=== PATIENT | male | born 1970 | race Hispanic/Latino ===

== ENCOUNTER 2019-10-29 20:07 | Inpatient (IN) | payer BC, OTHER ==
[~2019-10-29] VITALS: Ht 175.3 cm; Wt 78.4 kg
[2019-10-29] MEDS ORDERED: SODIUM CHLORIDE 0.9% 1000ML 1,000 ML IV ONE (21:05)
[2019-10-29] MEDS ORDERED: ACETAMINOPHEN EXTRA STRENGTH 500 MG TABLET ONE (21:05)
[2019-10-29] MEDS ORDERED: LEVOFLOXACIN 500 MG/D5W 100 ML 100 ML ONE (21:05)
[2019-10-29 21:23] LABS: BASOPHILS % (AUTO) 0.1 % (0.0-5.0); EOSINOPHILS % (AUTO) 2.1 % (0.0-8.0); HEMATOCRIT 43.8 % (42-54); LYMPHOCYTES % (AUTO) 6.5 % (21.0-51.0); MEAN CORPUSCULAR HEMOGLOBIN 30.9 pg (27.0-33.0); MEAN CORPUSCULAR VOLUME 90.9 fL (79-99); MONOCYTES % (AUTO) 3.4 % (3.0-13.0); NEUTROPHILS % (AUTO) 87.6 % (40.0-77.0); PLATELET COUNT (AUTO) 197 K/uL (130-400); RED BLOOD CELL COUNT(AUTO) 4.82 MIL/uL (4.50-6.20); RED CELL DISTRIBUTION WIDTH 12.3 % (11.0-15.5)
[2019-10-29 21:41] LABS: CREATININE 1.4 mg/dL (0.5-1.5); POTASSIUM 3.4 mmol/L (3.5-5.1)
[2019-10-29 21:46] LABS: ALBUMIN 3.3 g/dL (3.5-5.0); BILIRUBIN,TOTAL 0.5 mg/dL (0.2-1.0); INR 0.96 (0.85-1.15); PARTIAL THROMBOPLASTIN TIME 27.7 SEC (26.3-35.5); PROTHROMBIN TIME 10.4 SEC (9.6-11.6); TOTAL PROTEIN, SERUM 7.5 g/dL (6.0-8.3)
[2019-10-29] MEDS ORDERED: LIDOCAINE HCL-MPF 1% 2ML VIAL IV PRN (22:45)
[2019-10-29] MEDS ORDERED: ONDANSETRON HCL 4 MG/2 ML VIAL IV PRN (22:45)
[2019-10-29] MEDS ORDERED: POTASSIUM CHLORIDE 10MEQ/100ML 100 ML IV PRN (22:45)
[2019-10-29] MEDS ORDERED: POTASSIUM CHLORIDE 20 MEQ ERTAB PO PRN (22:45)
[2019-10-29] MEDS ORDERED: LACTULOSE 20 GM/30 ML UDCUP PO PRN (22:45)
[2019-10-29] MEDS: ALBUTEROL INHALER 90MCG/INH IH SCH (22:45)
[2019-10-29] MEDS ORDERED: ACETAMINOPHEN 325 MG TAB PO PRN ×2 (22:45)
[2019-10-29] MEDS: SODIUM CHLORIDE 0.9% 1000ML 1,000 ML IV SCH (23:15)
[2019-10-29] MEDS ORDERED: AZITHROMYCIN 500MG+NS 250ML 250 ML IV ONE (23:56)
[2019-10-29] MEDS ORDERED: CEFTRIAXONE SODIUM 1 GM ONE (23:57)
[2019-10-30 00:41] LABS: APPEARANCE,URINE Clear (CLEAR); BILIRUBIN,URINE Negative (NEGATIVE); COLOR,URINE Yellow (YELLOW); GLUCOSE, URINE (UA) Negative (NEGATIVE); KETONES,URINE Negative (NEGATIVE); LEUKOCYTE ESTERASE ,URINE Negative (NEGATIVE); NITRATE,URINE Negative (NEGATIVE); OCCULT BLOOD,URINE Negative (NEGATIVE); PROTEIN,URINE POS 1+ mg/dL (NEGATIVE)
[2019-10-30] MEDS ORDERED: GUAIFENESIN-CODEINE 5 ML SYRUP ONE (01:55)
[2019-10-30] MEDS: ALBUTEROL INHALER 90MCG/INH IH SCH ×6 (02:45→22:45)
[2019-10-30 04:49] LABS: BASOPHILS % (AUTO) 0.2 % (0.0-5.0); HEMATOCRIT 41.5 % (42-54); LYMPHOCYTES % (AUTO) 10.4 % (21.0-51.0); MEAN CORPUSCULAR HEMOGLOBIN 30.2 pg (27.0-33.0); MEAN CORPUSCULAR HGB CONC 33.3 g/dL (32.0-36.0); MEAN CORPUSCULAR VOLUME 90.8 fL (79-99); NEUTROPHILS % (AUTO) 86.2 % (40.0-77.0); PLATELET COUNT (AUTO) 179 K/uL (130-400); RED BLOOD CELL COUNT(AUTO) 4.57 MIL/uL (4.50-6.20); RED CELL DISTRIBUTION WIDTH 12.5 % (11.0-15.5); WHITE BLOOD COUNT (AUTO) 9.4 K/uL (4.8-10.8)
[2019-10-30 04:58] LABS: CREATININE 1.3 mg/dL (0.5-1.5); POTASSIUM 3.8 mmol/L (3.5-5.1)
[2019-10-30] MEDS: FAMOTIDINE 20MG TAB 20 MG TAB PO SCH (09:00)
[2019-10-30] MEDS: ENOXAPARIN SODIUM 40 MG/0.4 ML SYRINGE SQ SCH (09:00)
[2019-10-30] MEDS ORDERED: FAMOTIDINE 20MG TAB 20 MG TAB ONE (11:03)
[2019-10-30] MEDS ORDERED: ENOXAPARIN SODIUM 60 MG/0.6 ML SQ ONE (11:03)
[2019-10-30] MEDS: METHYLPREDNISOLONE SOD SUCC 40MG/ML 1ML IVP SCH ×2 (11:15→22:48)
[2019-10-30] MEDS ORDERED: METHYLPREDNISOLONE SOD SUCC 40MG/ML 1ML ONE (11:34)
[2019-10-30 17:41] VITALS: BP 113/64
[2019-10-30] MEDS ORDERED: BENZ200C53 PO (17:54)
[2019-10-30] MEDS ORDERED: LEVA15HF3 IH (17:54)
[2019-10-30] MEDS ORDERED: ALBU2.5V2 IH (17:54)
[2019-10-30] MEDS: SODIUM CHLORIDE 0.9% 1000ML 1,000 ML IV SCH ×2 (18:49→20:48)
[2019-10-30 19:43] VITALS: BP 109/64
[2019-10-30] MEDS ORDERED: GUAIFENESIN 600 MG TABLET.ER PO ONE (20:25)
[2019-10-30] MEDS ORDERED: GUAIFENESIN SUGAR-FREE 100 MG/5 ML UDCUP PO PRN (20:45)
[2019-10-30] MEDS: CEFTRIAXONE SODIUM 1 GM IV SCH (22:48)
[2019-10-30] MEDS: AZITHROMYCIN 500MG+NS 250ML 250 ML IV SCH (22:49)
[2019-10-30 23:50] VITALS: BP 108/57
[2019-10-31] MEDS: ALBUTEROL INHALER 90MCG/INH IH SCH ×6 (02:52→22:08)
[2019-10-31] MEDS: SODIUM CHLORIDE 0.9% 1000ML 1,000 ML IV SCH (03:35)
[2019-10-31 03:47] VITALS: BP 108/65
[2019-10-31 06:14] LABS: BASOPHILS % (AUTO) 0.1 % (0.0-5.0); HEMATOCRIT 42.4 % (42-54); LYMPHOCYTES % (AUTO) 3.7 % (21.0-51.0); MEAN CORPUSCULAR HEMOGLOBIN 29.9 pg (27.0-33.0); MEAN CORPUSCULAR VOLUME 90.6 fL (79-99); MONOCYTES % (AUTO) 2.7 % (3.0-13.0); NEUTROPHILS % (AUTO) 93.2 % (40.0-77.0); PLATELET COUNT (AUTO) 239 K/uL (130-400); RED BLOOD CELL COUNT(AUTO) 4.68 MIL/uL (4.50-6.20); WHITE BLOOD COUNT (AUTO) 12.1 K/uL (4.8-10.8)
[2019-10-31] MEDS: INSULIN HUMULIN R 100 UNIT/ML 3ML SQ SCH ×4 (06:27→21:00)
[2019-10-31 06:34] LABS: CREATININE 1.3 mg/dL (0.5-1.5); POTASSIUM 3.9 mmol/L (3.5-5.1)
[2019-10-31 08:10] VITALS: BP 117/65
[2019-10-31] MEDS: FAMOTIDINE 20MG TAB 20 MG TAB PO SCH (10:13)
[2019-10-31] MEDS: METHYLPREDNISOLONE SOD SUCC 40MG/ML 1ML IVP SCH ×2 (10:13→21:54)
[2019-10-31] MEDS: GUAIFENESIN-DM 200/20 MG 10 ML PO SCH ×3 (10:13→22:08)
[2019-10-31] MEDS: ENOXAPARIN SODIUM 40 MG/0.4 ML SYRINGE SQ SCH (10:14)
[2019-10-31 11:53] VITALS: BP 115/64
[2019-10-31] MEDS ORDERED: ACETAMINOPHEN-CODEINE 300/30MG TAB PO ONE (14:25)
[2019-10-31 16:03] VITALS: BP 109/63
--- NOTE | 2019-10-31 16:15 | NUR ---
cm note pt resides at home alone, independent with adls/ambulation. no dme. no home services. dc plan is home at dc. no dc needs. Addendum: 10/31/19 at 1621 by BEAU MYERS CM Amended: Links added.
[2019-10-31] MEDS: DEXTROSE 5 % AND 0.9 % NACL 1,000 ML IV SCH (18:30)
[2019-10-31 20:40] VITALS: BP 105/63
[2019-10-31] MEDS ORDERED: BUDESONIDE 0.5 MG/2 ML INH IH SCH (21:00)
[2019-10-31] MEDS: CEFTRIAXONE SODIUM 1 GM IV SCH (23:43)
[2019-10-31] MEDS: AZITHROMYCIN 500MG+NS 250ML 250 ML IV SCH (23:44)
[2019-10-31 23:47] VITALS: BP 101/54
[2019-11-01] MEDS: ALBUTEROL INHALER 90MCG/INH IH SCH ×5 (02:45→17:59)
[2019-11-01 04:05] VITALS: BP 117/66
[2019-11-01] MEDS: GUAIFENESIN-DM 200/20 MG 10 ML PO SCH ×4 (04:19→20:29)
[2019-11-01] MEDS: METHYLPREDNISOLONE SOD SUCC 40MG/ML 1ML IVP SCH ×3 (04:19→20:29)
[2019-11-01] MEDS: INSULIN HUMULIN R 100 UNIT/ML 3ML SQ SCH ×4 (05:50→20:28)
[2019-11-01] MEDS: DEXTROSE 5 % AND 0.9 % NACL 1,000 ML IV SCH (06:17)
[2019-11-01 07:00] VITALS: BP 106/63
[2019-11-01 07:20] LABS: BASOPHILS % (AUTO) 0.2 % (0.0-5.0); HEMATOCRIT 41.9 % (42-54); LYMPHOCYTES % (AUTO) 2.8 % (21.0-51.0); MEAN CORPUSCULAR HEMOGLOBIN 30.6 pg (27.0-33.0); MEAN CORPUSCULAR HGB CONC 33.2 g/dL (32.0-36.0); MEAN CORPUSCULAR VOLUME 92.3 fL (79-99); MONOCYTES % (AUTO) 2.5 % (3.0-13.0); NEUTROPHILS % (AUTO) 93.8 % (40.0-77.0); PLATELET COUNT (AUTO) 291 K/uL (130-400); RED BLOOD CELL COUNT(AUTO) 4.54 MIL/uL (4.50-6.20); RED CELL DISTRIBUTION WIDTH 12.1 % (11.0-15.5); WHITE BLOOD COUNT (AUTO) 12.3 K/uL (4.8-10.8)
[2019-11-01 07:22] LABS: ALBUMIN 2.5 g/dL (3.5-5.0); BILIRUBIN,TOTAL 0.4 mg/dL (0.2-1.0); CREATININE 1.2 mg/dL (0.5-1.5); CRP QUANTITATIVE 139.3 mg/L (0.00-9.0); POTASSIUM 3.9 mmol/L (3.5-5.1); TOTAL PROTEIN, SERUM 6.6 g/dL (6.0-8.3)
[2019-11-01] MEDS: FAMOTIDINE 20MG TAB 20 MG TAB PO SCH (09:16)
[2019-11-01] MEDS: ENOXAPARIN SODIUM 40 MG/0.4 ML SYRINGE SQ SCH (09:17)
[2019-11-01 11:00] VITALS: BP 108/62
--- NOTE | 2019-11-01 11:30 | NUR ---
DR AILYN ROBERTSON ROUNDED ON PATIENT , ORDERS RECEIVED TO STOP IV FLUID, ORDERS PLACED.
[2019-11-01] MEDS ORDERED: REMDESIVIR (INVESTIGATIONAL) 100 MG in SODIUM CHLORIDE 0.9% 250 ML IV SCH (13:45)
[2019-11-01 15:43] VITALS: BP 121/62
--- NOTE | 2019-11-01 19:15 | NUR ---
RECEIVED REPORT FROM JERRELL GUZMAN. PT IS AWAKE LAYING IN BED, NO DISTRESS NOTED.
[2019-11-01 19:45] VITALS: BP 130/78
[2019-11-01] MEDS: ACETAMINOPHEN-CODEINE 300/30MG TAB PO PRN (20:29)
[2019-11-01 23:47] VITALS: BP 126/48
[2019-11-02] MEDS: CEFTRIAXONE SODIUM 1 GM IV SCH (01:43)
[2019-11-02] MEDS: AZITHROMYCIN 500MG+NS 250ML 250 ML IV SCH (01:44)
[2019-11-02] MEDS: METHYLPREDNISOLONE SOD SUCC 40MG/ML 1ML IVP SCH ×3 (01:44→21:31)
[2019-11-02] MEDS: GUAIFENESIN-DM 200/20 MG 10 ML PO SCH ×4 (01:45→21:31)
[2019-11-02 03:36] VITALS: BP 102/53
[2019-11-02 04:44] LABS: BASOPHILS % (AUTO) 0.3 % (0.0-5.0); HEMATOCRIT 45.5 % (42-54); LYMPHOCYTES % (AUTO) 6.2 % (21.0-51.0); MEAN CORPUSCULAR HEMOGLOBIN 30.3 pg (27.0-33.0); MEAN CORPUSCULAR VOLUME 91.9 fL (79-99); MONOCYTES % (AUTO) 2.7 % (3.0-13.0); NEUTROPHILS % (AUTO) 89.1 % (40.0-77.0); PLATELET COUNT (AUTO) 361 K/uL (130-400); RED BLOOD CELL COUNT(AUTO) 4.95 MIL/uL (4.50-6.20); RED CELL DISTRIBUTION WIDTH 11.9 % (11.0-15.5); WHITE BLOOD COUNT (AUTO) 10.8 K/uL (4.8-10.8)
[2019-11-02 05:06] LABS: ALBUMIN 2.7 g/dL (3.5-5.0); BILIRUBIN,TOTAL 0.4 mg/dL (0.2-1.0); CREATININE 1.3 mg/dL (0.5-1.5); CRP QUANTITATIVE 70.8 mg/L (0.00-9.0); POTASSIUM 3.8 mmol/L (3.5-5.1); TOTAL PROTEIN, SERUM 7.1 g/dL (6.0-8.3)
[2019-11-02] MEDS: INSULIN HUMULIN R 100 UNIT/ML 3ML SQ SCH ×4 (06:27→21:00)
[2019-11-02 08:00] VITALS: BP 105/62
[2019-11-02] MEDS: FAMOTIDINE 20MG TAB 20 MG TAB PO SCH (08:44)
[2019-11-02] MEDS: ENOXAPARIN SODIUM 40 MG/0.4 ML SYRINGE SQ SCH (08:45)
[2019-11-02] MEDS: ALBUTEROL INHALER 90MCG/INH IH SCH ×3 (08:58→18:38)
--- NOTE | 2019-11-02 11:30 | NUR ---
DR. Croft; continue w. same tx no new orders received.
[2019-11-02 12:00] VITALS: BP 123/68
[2019-11-02 16:00] VITALS: BP 113/58
--- NOTE | 2019-11-02 19:25 | NUR ---
RECEIVED REPORT FROM JERRELL SKINNER. PT LAYING PRONE, O2 VIA NC ON 2L, O2 AT 92%. NO DISTRESS NOTED.
[2019-11-02 19:40] VITALS: BP 105/67
[2019-11-03] VITALS (7 sets, daily range): BP systolic 99–132; BP diastolic 54–79
[2019-11-03] MEDS: CEFTRIAXONE SODIUM 1 GM IV SCH (03:46)
[2019-11-03] MEDS: GUAIFENESIN-DM 200/20 MG 10 ML PO SCH ×4 (03:46→21:30)
[2019-11-03] MEDS: METHYLPREDNISOLONE SOD SUCC 40MG/ML 1ML IVP SCH ×3 (03:46→21:30)
[2019-11-03] MEDS: AZITHROMYCIN 500MG+NS 250ML 250 ML IV SCH (03:47)
[2019-11-03] MEDS: INSULIN HUMULIN R 100 UNIT/ML 3ML SQ SCH ×4 (06:29→21:35)
--- NOTE | 2019-11-03 06:55 | NUR ---
REPORT GIVEN TO JERRELL NICOLE. PT AWAKE AND LAYING IN BED. NO DISTRESS NOTED.
[2019-11-03] MEDS: ENOXAPARIN SODIUM 40 MG/0.4 ML SYRINGE SQ SCH (07:58)
[2019-11-03] MEDS: FAMOTIDINE 20MG TAB 20 MG TAB PO SCH (07:58)
[2019-11-03 08:00] LABS: HEMATOCRIT 42.9 % (42-54); MEAN CORPUSCULAR HEMOGLOBIN 30.6 pg (27.0-33.0); MEAN CORPUSCULAR VOLUME 89.9 fL (79-99); NUCLEATED RED BLOOD CELLS 0.2 % (0.0-0.19); PLATELET COUNT (AUTO) 358 K/uL (130-400); RED BLOOD CELL COUNT(AUTO) 4.77 MIL/uL (4.50-6.20); RED CELL DISTRIBUTION WIDTH 11.9 % (11.0-15.5); WHITE BLOOD COUNT (AUTO) 11.1 K/uL (4.8-10.8)
--- NOTE | 2019-11-03 08:00 | NUR ---
ASSESSMENT PT IS AAOX3 DENIES CP DENIES SOB DENIES NV AT THIS TIME. CURRENTLY ON O2 NC AT 2LPM, SITTING UPRIGHT IN BED. STATES HE FEELS SLIGHTLY BETTER TODAY THAN YESTERDAY. CALL LIGHT WITHIN REACH.
[2019-11-03 08:22] LABS: ALBUMIN 2.7 g/dL (3.5-5.0); BILIRUBIN,TOTAL 0.4 mg/dL (0.2-1.0); CREATININE 1.2 mg/dL (0.5-1.5); CRP QUANTITATIVE 40.8 mg/L (0.00-9.0); POTASSIUM 4.2 mmol/L (3.5-5.1); TOTAL PROTEIN, SERUM 6.4 g/dL (6.0-8.3)
[2019-11-03 10:24] LABS: LYMPHOCYTES % (MANUAL) 6 % (22-44); MONOCYTES % (MANUAL) 3 % (2-9); SEGMENTED NEUTROPHILS % 91 % (40-70)
[2019-11-03 10:25] LABS: MAN.DIFF COMMENT-IMPRESSION MANUAL DIFFERENTIAL; PLATELET MORPHOLOGY COMMENT ADEQUATE
--- NOTE | 2019-11-03 10:59 | NUR ---
DR ROBERTSON ROUNDED ORDERED TO HOLD OFF ON REMDESIVIR AND CONV PLASMA FOR NOW
--- NOTE | 2019-11-03 18:00 | NUR ---
STATUS RESTING IN BED, SITTING UP IN BED. PT EXHIBITS NO VISIBLE SIGNS OF DISTRESS, CALL LIGHT WITHIN REACH.
[2019-11-03] MEDS: ALBUTEROL INHALER 90MCG/INH IH SCH (22:45)
[2019-11-04] MEDS: GUAIFENESIN-DM 200/20 MG 10 ML PO SCH ×4 (03:14→20:10)
[2019-11-04] MEDS: CEFTRIAXONE SODIUM 1 GM IV SCH ×2 (03:14→23:40)
[2019-11-04] MEDS: AZITHROMYCIN 500MG+NS 250ML 250 ML IV SCH ×2 (03:14→23:40)
[2019-11-04] MEDS: METHYLPREDNISOLONE SOD SUCC 40MG/ML 1ML IVP SCH (03:16)
[2019-11-04 03:55] VITALS: BP 120/62
[2019-11-04] MEDS: INSULIN HUMULIN R 100 UNIT/ML 3ML SQ SCH ×4 (05:44→21:27)
[2019-11-04 06:23] LABS: HEMATOCRIT 42.4 % (42-54); MEAN CORPUSCULAR HEMOGLOBIN 30.4 pg (27.0-33.0); MEAN CORPUSCULAR HGB CONC 33.7 g/dL (32.0-36.0); MEAN CORPUSCULAR VOLUME 90.2 fL (79-99); NUCLEATED RED BLOOD CELLS 0.2 % (0.0-0.19); PLATELET COUNT (AUTO) 345 K/uL (130-400); RED CELL DISTRIBUTION WIDTH 11.7 % (11.0-15.5); WHITE BLOOD COUNT (AUTO) 10.2 K/uL (4.8-10.8)
[2019-11-04] MEDS: ALBUTEROL INHALER 90MCG/INH IH SCH ×5 (06:40→23:39)
[2019-11-04 06:54] LABS: ALBUMIN 2.6 g/dL (3.5-5.0); BILIRUBIN,TOTAL 0.4 mg/dL (0.2-1.0); CREATININE 1.1 mg/dL (0.5-1.5); CRP QUANTITATIVE 28.7 mg/L (0.00-9.0); POTASSIUM 4.5 mmol/L (3.5-5.1); TOTAL PROTEIN, SERUM 6.3 g/dL (6.0-8.3)
[2019-11-04] MEDS: ENOXAPARIN SODIUM 40 MG/0.4 ML SYRINGE SQ SCH (07:55)
[2019-11-04] MEDS: FAMOTIDINE 20MG TAB 20 MG TAB PO SCH (07:55)
--- NOTE | 2019-11-04 08:00 | NUR ---
ASSESSMENT PT IS AAOX3 DENIES CP DENIES SOB WHILE AT REST, BUT STATES HE FEELS SHORT OF BREATH / AGITATED WITH EXERTION UP AND DOWN TO THE RESTROOM. DENIES NV. CURRENTLY ON O2 VIA NC. BREATHING PATTERN IS EVEN AND UNLABORED. CALL LIGHT WITHIN REACH.
[2019-11-04 08:45] VITALS: BP 83/56
[2019-11-04 09:28] LABS: LYMPHOCYTES % (MANUAL) 13 % (22-44); MAN.DIFF COMMENT-IMPRESSION MANUAL DIFFERENTIAL; MONOCYTES % (MANUAL) 2 % (2-9); PLATELET MORPHOLOGY COMMENT ADEQUATE; SEGMENTED NEUTROPHILS % 85 % (40-70)
[2019-11-04 12:14] VITALS: BP 87/51
--- NOTE | 2019-11-04 12:30 | NUR ---
MD ROUNDS DR ROBERTSON / IVANA BAILEY [employer] ROUNDED. ORDERS RECEIVED.
[2019-11-04 16:36] VITALS: BP 92/56
--- NOTE | 2019-11-04 16:40 | NUR ---
STATUS SITTING UPRIGHT IN BED. SBP 90S. NO COMPLAINTS. CALL LIGHT WITHIN REACH.
[2019-11-04 20:00] VITALS: BP 96/54
[2019-11-05] VITALS (8 sets, daily range): BP systolic 82–139; BP diastolic 44–73
[2019-11-05] MEDS: GUAIFENESIN-DM 200/20 MG 10 ML PO SCH ×4 (03:34→21:06)
[2019-11-05] MEDS: ALBUTEROL INHALER 90MCG/INH IH SCH ×6 (03:34→20:58)
[2019-11-05 05:31] LABS: BASOPHILS % (AUTO) 0.4 % (0.0-5.0); EOSINOPHILS % (AUTO) 0.3 % (0.0-8.0); LYMPHOCYTES % (AUTO) 13.8 % (21.0-51.0); MEAN CORPUSCULAR HEMOGLOBIN 29.8 pg (27.0-33.0); MEAN CORPUSCULAR HGB CONC 32.9 g/dL (32.0-36.0); MEAN CORPUSCULAR VOLUME 90.7 fL (79-99); MONOCYTES % (AUTO) 4.3 % (3.0-13.0); NEUTROPHILS % (AUTO) 74.1 % (40.0-77.0); NUCLEATED RED BLOOD CELLS 0.2 % (0.0-0.19); PLATELET COUNT (AUTO) 313 K/uL (130-400); RED BLOOD CELL COUNT(AUTO) 4.63 MIL/uL (4.50-6.20); RED CELL DISTRIBUTION WIDTH 11.9 % (11.0-15.5); WHITE BLOOD COUNT (AUTO) 9.1 K/uL (4.8-10.8)
[2019-11-05] MEDS: INSULIN HUMULIN R 100 UNIT/ML 3ML SQ SCH ×4 (05:55→20:55)
[2019-11-05 05:56] LABS: ALBUMIN 2.4 g/dL (3.5-5.0); BILIRUBIN,TOTAL 0.3 mg/dL (0.2-1.0); CREATININE 1.2 mg/dL (0.5-1.5); CRP QUANTITATIVE 28.3 mg/L (0.00-9.0); POTASSIUM 4.3 mmol/L (3.5-5.1); TOTAL PROTEIN, SERUM 5.9 g/dL (6.0-8.3)
[2019-11-05] MEDS: DEXAMETHASONE 4 MG TAB PO SCH (05:57)
[2019-11-05] MEDS: ENOXAPARIN SODIUM 40 MG/0.4 ML SYRINGE SQ SCH (08:27)
[2019-11-05] MEDS: FAMOTIDINE 20MG TAB 20 MG TAB PO SCH (08:32)
[2019-11-05] MEDS ORDERED: SODIUM CHLORIDE 0.9% 1000ML 1,000 ML IV ONE (08:55)
--- NOTE | 2019-11-05 08:55 | NUR ---
BP 82/44 w routine vitals. Recheck 82/52. Reported to GERARDO Gonzalez for hospitalist. Rec'd orders for 1 liter NS bolus. Orders entered and honored.
[2019-11-05] MEDS ORDERED: SODIUM CHLORIDE 0.9% 1000ML 1,000 ML IV SCH (09:00)
--- NOTE | 2019-11-05 11:00 | NUR ---
Bolus complete. Repeat BP was 115/65.
--- NOTE | 2019-11-05 15:14 | NUR ---
RDSCREEN - LOS X 7 Pt admitted with Positive COVID-19, PNA. Pt with regular diet order in place. No report of GI distress. PO intake at 100%. Elevated LDH, Altered LFT's. Increased protein need. Recommend continue diet order Recommend 60mL ProMod QD RD to continue to monitor. Please notify as additional nutrition concerns arise. Thank you. Addendum: 11/05/19 at [address] Amended: Links added.
--- NOTE | 2019-11-05 16:05 | NUR ---
Routine vitals now w/ BP 96/51, HR 70, O2 sat 93% on room air. Pt denies symptoms of hypotension at this time. Reported BP to Dr. Croft, no new orders given.
--- NOTE | 2019-11-05 18:15 | NUR ---
cm note spoke to Katharina batista [facility] [place] ph#[phone]. and states if any dc needs, informed possible home O2, but pt not ready for dc. still w low bps. states will fax dme and snfs in network in case needed. call for any needs.
[2019-11-05 18:23] LABS: LACTATE DEHYDROGENASE 339 U/L (81-234)
[2019-11-05] MEDS: AZITHROMYCIN 500MG+NS 250ML 250 ML IV SCH (23:23)
[2019-11-05] MEDS: CEFTRIAXONE SODIUM 1 GM IV SCH (23:23)
[2019-11-06] MEDS: ALBUTEROL INHALER 90MCG/INH IH SCH ×6 (02:48→22:47)
[2019-11-06] MEDS: GUAIFENESIN-DM 200/20 MG 10 ML PO SCH ×4 (02:49→22:57)
[2019-11-06 03:50] VITALS: BP 110/64
[2019-11-06 04:54] LABS: BASOPHILS % (AUTO) 0.3 % (0.0-5.0); EOSINOPHILS % (AUTO) 0.5 % (0.0-8.0); HEMATOCRIT 40.5 % (42-54); LYMPHOCYTES % (AUTO) 9.7 % (21.0-51.0); MEAN CORPUSCULAR HEMOGLOBIN 30.8 pg (27.0-33.0); MEAN CORPUSCULAR HGB CONC 34.1 g/dL (32.0-36.0); MEAN CORPUSCULAR VOLUME 90.4 fL (79-99); MONOCYTES % (AUTO) 4.3 % (3.0-13.0); NEUTROPHILS % (AUTO) 81.4 % (40.0-77.0); PLATELET COUNT (AUTO) 291 K/uL (130-400); RED BLOOD CELL COUNT(AUTO) 4.48 MIL/uL (4.50-6.20); RED CELL DISTRIBUTION WIDTH 11.9 % (11.0-15.5); WHITE BLOOD COUNT (AUTO) 10.7 K/uL (4.8-10.8)
[2019-11-06 05:32] LABS: CREATININE 1.2 mg/dL (0.5-1.5); CRP QUANTITATIVE 65.1 mg/L (0.00-9.0); POTASSIUM 3.7 mmol/L (3.5-5.1)
[2019-11-06] MEDS: INSULIN HUMULIN R 100 UNIT/ML 3ML SQ SCH ×4 (05:32→20:44)
[2019-11-06] MEDS: DEXAMETHASONE 4 MG TAB PO SCH (05:32)
[2019-11-06 08:27] VITALS: BP 98/60
[2019-11-06] MEDS: POTASSIUM CHLORIDE 10% ELIXIR 20 MEQ/15 ML UDCUP PO PRN ×2 (08:33→15:17)
[2019-11-06] MEDS: ENOXAPARIN SODIUM 40 MG/0.4 ML SYRINGE SQ SCH (08:34)
[2019-11-06] MEDS: FAMOTIDINE 20MG TAB 20 MG TAB PO SCH (09:00)
[2019-11-06 10:55] VITALS: BP 110/71
[2019-11-06 16:00] VITALS: BP 116/76
[2019-11-06 19:26] VITALS: BP 115/62
[2019-11-06] MEDS: CEFTRIAXONE SODIUM 1 GM IV SCH (22:56)
[2019-11-06] MEDS: AZITHROMYCIN 500MG+NS 250ML 250 ML IV SCH (22:56)
[2019-11-06 23:20] VITALS: BP 93/66
[2019-11-07] MEDS: ALBUTEROL INHALER 90MCG/INH IH SCH ×6 (02:45→17:50)
[2019-11-07 03:00] VITALS: BP 93/59
[2019-11-07] MEDS: DEXAMETHASONE 4 MG TAB PO SCH (05:40)
[2019-11-07] MEDS: GUAIFENESIN-DM 200/20 MG 10 ML PO SCH ×3 (05:42→17:49)
[2019-11-07 06:41] LABS: BASOPHILS % (AUTO) 0.1 % (0.0-5.0); EOSINOPHILS % (AUTO) 0.6 % (0.0-8.0); HEMATOCRIT 41.9 % (42-54); LYMPHOCYTES % (AUTO) 9.6 % (21.0-51.0); MEAN CORPUSCULAR HEMOGLOBIN 30.3 pg (27.0-33.0); MEAN CORPUSCULAR HGB CONC 33.7 g/dL (32.0-36.0); MEAN CORPUSCULAR VOLUME 90.1 fL (79-99); MONOCYTES % (AUTO) 4.6 % (3.0-13.0); NEUTROPHILS % (AUTO) 82.1 % (40.0-77.0); PLATELET COUNT (AUTO) 329 K/uL (130-400); RED BLOOD CELL COUNT(AUTO) 4.65 MIL/uL (4.50-6.20); RED CELL DISTRIBUTION WIDTH 12.1 % (11.0-15.5); WHITE BLOOD COUNT (AUTO) 9.9 K/uL (4.8-10.8)
[2019-11-07] MEDS: INSULIN HUMULIN R 100 UNIT/ML 3ML SQ SCH ×4 (06:54→21:00)
[2019-11-07 07:02] LABS: CREATININE 1.1 mg/dL (0.5-1.5); CRP QUANTITATIVE 60.9 mg/L (0.00-9.0); POTASSIUM 4.1 mmol/L (3.5-5.1)
[2019-11-07 08:00] VITALS: BP 91/54
--- NOTE | 2019-11-07 08:00 | NUR ---
cm note faxed [employer] forms to [employer] and call made to intake, they state they will work on case and will let cm know when approved.
[2019-11-07] MEDS: FAMOTIDINE 20MG TAB 20 MG TAB PO SCH (09:00)
[2019-11-07] MEDS: ENOXAPARIN SODIUM 40 MG/0.4 ML SYRINGE SQ SCH (09:10)
[2019-11-07 12:00] VITALS: BP 91/58
--- NOTE | 2019-11-07 13:49 | NUR ---
cm note call received from zechariah Elam from [facility] and states they have delivered home O2 to pts family at home. spoke to pt in room he states that he has already received O2 at home. call made to primary nurse Carmita informed that pt has been approved for oxygen and that it has been delivered to pts home and pts mother will bring in portable tank when ready for [place].
--- NOTE | 2019-11-07 14:51 | NUR ---
DISCHARGE ORDER Halima BAILEY NP NOTIFIED DR ROBERTSON DID NOT CLEAR PT FOR DISCHARGE HOME TODAY.
[2019-11-07 18:17] VITALS: BP 90/56
[2019-11-07 19:49] VITALS: BP 94/61
[2019-11-07 23:17] VITALS: BP 111/74
[2019-11-08] MEDS: AZITHROMYCIN 500MG+NS 250ML 250 ML IV SCH (00:41)
[2019-11-08] MEDS: GUAIFENESIN-DM 200/20 MG 10 ML PO SCH ×4 (00:41→17:00)
[2019-11-08] MEDS: CEFTRIAXONE SODIUM 1 GM IV SCH (00:41)
[2019-11-08] MEDS: ACETAMINOPHEN-CODEINE 300/30MG TAB PO PRN (01:27)
[2019-11-08 03:19] VITALS: BP 105/63
[2019-11-08 06:06] LABS: BASOPHILS % (AUTO) 0.1 % (0.0-5.0); EOSINOPHILS % (AUTO) 0.2 % (0.0-8.0); HEMATOCRIT 43.4 % (42-54); LYMPHOCYTES % (AUTO) 6.9 % (21.0-51.0); MEAN CORPUSCULAR HGB CONC 33.4 g/dL (32.0-36.0); MEAN CORPUSCULAR VOLUME 89.9 fL (79-99); MONOCYTES % (AUTO) 5.1 % (3.0-13.0); PLATELET COUNT (AUTO) 332 K/uL (130-400); RED BLOOD CELL COUNT(AUTO) 4.83 MIL/uL (4.50-6.20); RED CELL DISTRIBUTION WIDTH 12.1 % (11.0-15.5); WHITE BLOOD COUNT (AUTO) 11.5 K/uL (4.8-10.8)
[2019-11-08] MEDS: DEXAMETHASONE 4 MG TAB PO SCH (06:25)
[2019-11-08] MEDS: INSULIN HUMULIN R 100 UNIT/ML 3ML SQ SCH ×3 (06:26→16:17)
[2019-11-08 07:00] VITALS: BP 82/50
[2019-11-08 07:30] LABS: ALBUMIN 2.9 g/dL (3.5-5.0); BILIRUBIN,TOTAL 0.4 mg/dL (0.2-1.0); CREATININE 1.1 mg/dL (0.5-1.5); CRP QUANTITATIVE 39.3 mg/L (0.00-9.0); TOTAL PROTEIN, SERUM 6.1 g/dL (6.0-8.3)
[2019-11-08 07:41] LABS: POTASSIUM 4.7 mmol/L (3.5-5.1)
[2019-11-08] MEDS ORDERED: FAMOTIDINE/PF 20 MG/2 ML VIAL IV SCH (09:00)
[2019-11-08] MEDS: ENOXAPARIN SODIUM 40 MG/0.4 ML SYRINGE SQ SCH (09:14)
[2019-11-08] MEDS: ALBUTEROL INHALER 90MCG/INH IH SCH ×4 (10:45→16:00)
[2019-11-08 11:00] VITALS: BP 86/56
[2019-11-08] MEDS ORDERED: APIX2.5T PO (12:35)
[2019-11-08 13:33] VITALS: BP_SYST 101; BP_SYST 92; BP_SYST 94; BP_DIAS 49; BP_DIAS 54; BP_DIAS 85
--- NOTE | 2019-11-08 13:36 | NUR ---
ORTHOSTATIC VITAL SIGNS DONE (SEE DOCUMENTATION) PATIENT ASYMPTOMATIC. INFORMED PATIENT HE WILL BE DISCHARGED. PATIENT STATED HE DOES NOT HAVE A RIDE UNTIL 5PM
[2019-11-08 16:00] VITALS: BP 96/56
[2019-11-08] MEDS ORDERED: DEXA6TAB PO (16:23)
[2019-11-22] MEDS ORDERED: DEXA6TAB PO (16:00)
[2019-11-22] MEDS ORDERED: LISI2.5T2 PO (16:00)
== END 2019-11-08 17:45 | disposition home or self-care (01) | DRG 177 ==
LOC: EDH 20:07 → EDHIP 22:40 → 2AH 10-30 17:16
PROVIDERS: ADMIT Hospitalist; ATTEND Hospitalist
DX: U07.1 COVID-19 (principal); J96.01 Acute respiratory failure with hypoxia; J12.89 Other viral pneumonia; J45.901 Unspecified asthma with (acute) exacerbation; E87.6 Hypokalemia; F41.9 Anxiety disorder, unspecified; I95.9 Hypotension, unspecified; I10 Essential (primary) hypertension
CPT/HCPCS: 36415; 71045; 71275; 80048; 80053; 81003; 82550; 82728; 82948; 83605; 83615; 84145; 84484; 85025; 85378; 85610; 85730; 86140; 86850; 86900; 86901; 87040; 87486; 87581; 87633; 87635; 87798; 93005; 94760; G0378; J0456; J0696; J1650; J1815; J1956; J2920; J3490; J7030; J7042; J8540

== ENCOUNTER 2019-11-13 21:23 | Emergency (ER) | payer BC ==
[2019-11-13] MEDS ORDERED: TRAMADOL HCL 50 MG TABLET ONE (23:23)
== END 2019-11-13 23:45 | disposition home or self-care (01) ==
LOC: EDH 21:23
DX: U07.1 COVID-19 (principal); J12.89 Other viral pneumonia; J98.2 Interstitial emphysema; F41.9 Anxiety disorder, unspecified; J45.909 Unspecified asthma, uncomplicated

== ENCOUNTER 2019-11-15 | Inpatient (IN) | payer BC | END 2019-11-22 18:15 | disposition home or self-care (01) | DRG 177 | PROVIDERS: ADMIT Internal Medicine ==

== ENCOUNTER 2019-12-20 18:05 | Emergency (ER) | payer BC ==
[~2019-12-20 18:05] MED LIST: ALBU2.5V2 IH; APIX2.5T PO; BENZ200C53 PO; DEXA6TAB PO; LEVA15HF3 IH; LISI2.5T2 PO
[2019-12-20 18:43] LABS: BASOPHILS % (AUTO) 0.5 % (0.0-5.0); EOSINOPHILS % (AUTO) 3.3 % (0.0-8.0); HEMATOCRIT 39.5 % (42-54); LYMPHOCYTES % (AUTO) 17.5 % (21.0-51.0); MEAN CORPUSCULAR HEMOGLOBIN 30.3 pg (27.0-33.0); MEAN CORPUSCULAR HGB CONC 32.9 g/dL (32.0-36.0); MEAN CORPUSCULAR VOLUME 92.1 fL (79-99); MONOCYTES % (AUTO) 7.8 % (3.0-13.0); NEUTROPHILS % (AUTO) 66.8 % (40.0-77.0); PLATELET COUNT (AUTO) 265 K/uL (130-400); RED BLOOD CELL COUNT(AUTO) 4.29 MIL/uL (4.50-6.20); RED CELL DISTRIBUTION WIDTH 14.3 % (11.0-15.5); WHITE BLOOD COUNT (AUTO) 6.1 K/uL (4.8-10.8)
[2019-12-20 18:52] LABS: INR 0.9 (0.85-1.15); PARTIAL THROMBOPLASTIN TIME 24.5 SEC (26.3-35.5); PROTHROMBIN TIME 9.8 SEC (9.6-11.6)
[2019-12-20 20:25] LABS: POTASSIUM 4.1 mmol/L (3.5-5.1)
[2019-12-20 20:30] LABS: ALBUMIN 3.3 g/dL (3.5-5.0); BILIRUBIN,TOTAL 0.4 mg/dL (0.2-1.0); TOTAL PROTEIN, SERUM 7.2 g/dL (6.0-8.3)
[2019-12-20] MEDS ORDERED: IOHEXOL 350 MG/ML 100ML INFUS..BTL IV ONE (20:45)
[2019-12-20] MEDS ORDERED: DOXYCYCLINE HYCLATE 100 MG TABLET PO ONE (22:29)
[2019-12-20] MEDS ORDERED: DEXAMETHASONE 4 MG TAB ONE (22:29)
[2019-12-20] MEDS ORDERED: ENOXAPARIN SODIUM 80 MG/0.8 ML SQ ONE (22:29)
== END 2019-12-20 22:56 | disposition home or self-care (01) ==
LOC: EDH 18:05
DX: J18.1 Lobar pneumonia, unspecified organism (principal); J12.9 Viral pneumonia, unspecified; F41.9 Anxiety disorder, unspecified; J45.909 Unspecified asthma, uncomplicated
CPT/HCPCS: 36415; 71045; 71275; 80053; 82550; 84484; 85025; 85378; 85610; 85730; 93005; 96360; 96361 ×2; 96372; 99285; J1650; J8540; Q9967

== ENCOUNTER 2020-01-14 09:40 | Emergency (ER) | payer BC ==
[2020-01-14 10:08] LABS: BASOPHILS % (AUTO) 0.5 % (0.0-5.0); EOSINOPHILS % (AUTO) 1.3 % (0.0-8.0); HEMATOCRIT 41.8 % (42-54); LYMPHOCYTES % (AUTO) 12.9 % (21.0-51.0); MEAN CORPUSCULAR HEMOGLOBIN 30.2 pg (27.0-33.0); MEAN CORPUSCULAR HGB CONC 32.8 g/dL (32.0-36.0); MEAN CORPUSCULAR VOLUME 92.3 fL (79-99); MONOCYTES % (AUTO) 4.9 % (3.0-13.0); NEUTROPHILS % (AUTO) 79.8 % (40.0-77.0); PLATELET COUNT (AUTO) 164 K/uL (130-400); RED BLOOD CELL COUNT(AUTO) 4.53 MIL/uL (4.50-6.20); RED CELL DISTRIBUTION WIDTH 14.7 % (11.0-15.5); WHITE BLOOD COUNT (AUTO) 8.4 K/uL (4.8-10.8)
[2020-01-14] MEDS ORDERED: CEFTRIAXONE SODIUM 2 GM VIAL ONE (10:10)
[2020-01-14 10:25] LABS: PARTIAL THROMBOPLASTIN TIME 23.9 SEC (26.3-35.5)
[2020-01-14 10:35] LABS: ALANINE AMINOTRANSFERASE 88 U/L (12-78); ALBUMIN 3.9 g/dL (3.5-5.0); ASPARTATE AMINOTRANSFERASE 43 U/L (10-37); BILIRUBIN,TOTAL 0.4 mg/dL (0.2-1.0); CARBON DIOXIDE 27 mmol/L (21-32); CHLORIDE 104 mmol/L (101-111); CREATINE KINASE, TOTAL 31 U/L (21-232); CREATININE 1.1 mg/dL (0.5-1.5); GLOMERULAR FILTR. RATE CALC 76 mL/min (>60); GLUCOSE,RANDOM 164 mg/dL (70-105); INR 0.88 (0.85-1.15); MYOGLOBIN 23 ng/mL (10-92); PROTHROMBIN TIME 9.6 SEC (9.6-11.6); SODIUM SERUM 139 mmol/L (136-145); TOTAL PROTEIN, SERUM 7.5 g/dL (6.0-8.3); TROPONIN I < 0.04 ng/mL (0.00-0.06); UREA NITROGEN, BLOOD 13 mg/dL (7-18)
[2020-01-14 13:07] LABS: APPEARANCE,URINE Clear (CLEAR); BILIRUBIN,URINE Negative (NEGATIVE); COLOR,URINE Yellow (YELLOW); GLUCOSE, URINE (UA) Negative (NEGATIVE); KETONES,URINE Negative (NEGATIVE); LEUKOCYTE ESTERASE ,URINE Negative (NEGATIVE); NITRATE,URINE Negative (NEGATIVE); OCCULT BLOOD,URINE Negative (NEGATIVE); PROTEIN,URINE Negative (NEGATIVE); UROBILINOGEN,URINE 0.2 mg/dL (0.2-1.0)
== END 2020-01-14 14:56 | disposition home or self-care (01) ==
LOC: EDH 09:40
DX: U07.1 COVID-19 (principal); R06.00 Dyspnea, unspecified; J45.909 Unspecified asthma, uncomplicated; F41.9 Anxiety disorder, unspecified
CPT/HCPCS: 36415; 71045; 80053; 81003; 82550; 82728; 83605 ×2; 83874; 84145; 84484; 85025; 85378; 85610; 85730; 86900; 86901; 87040; 87077 ×2; 87088; 87186 ×2; 87426; 93005; 96374; 99285; J0696; U0003

== ENCOUNTER 2024-05-27 18:07 | Emergency (ER) | payer BC ==
[~2024-05-27] VITALS: Ht 175.3 cm; Wt 88.5 kg
[~2024-05-27 18:07] MED LIST changes: +LISI2.5T13 PO; -LISI2.5T2 PO
--- NOTE | 2024-05-27 18:29 | ERN ---
General Chief Complaint: Urinary Frequency Stated Complaint: URINARY RETENTION Time Seen by : 18:08 Time Seen by Midlevel: 18:08 Source: patient History of Present Illness Initial Comments Patient is a 54-year-old male presenting to the emergency department with dysuria, and urinary hesitancy that has been ongoing for the last month. He was seen by his primary care doctor earlier this week for the same complaints. A urinalysis was performed which showed sugar in his urine. Patient then had an extensive workup and was diagnosed with type 2 diabetes. He was started on metformin. He states that over the last couple of days he has been having an increase in urinary frequency but states he was unable to fully void. Denies any hematuria, fever, or rectal pain at this time. He does report some intermittent chills but no reported fevers at home. Patient denies having any history of an enlarged prostate or any other prostate issues. Allergies: Coded Allergies: No Known Allergies (Verified Allergy, Unknown, 10/29/19) Home Meds Active Scripts Levofloxacin (Levofloxacin) 500 Mg Tablet, 1 TAB PO DAILY for 28 Days, #28 TAB 0 Refills Prov:BRODY PERALES 05/27/24 Dexamethasone (Dexamethasone) 6 Mg Tablet, 6 MG PO BID for 10 Days, #20 TAB Prov:ARABELLA TALAVERA Jr., MD 11/22/19 Lisinopril (Lisinopril) 2.5 Mg Tablet, 2.5 MG PO DAILY for 30 Days, TAB Prov:ARABELLA TALAVERA Jr., MD 11/22/19 Apixaban (Eliquis) 2.5 Mg Tablet, 2.5 MG PO BID for 14 Days, #28 TAB 0 Refills Prov:IVANA BAILEY 11/08/19 Reported Medications Levalbuterol Tartrate (Levalbuterol Tartrate Hfa) 15 Gm Hfa.aer.ad, 1 PUFF IH Q4HPRN PRN for SHORTNESS OF BREATH 10/30/19 Benzonatate (Benzonatate) 200 Mg Capsule, 200 MG PO TID 10/30/19 Albuterol Sulfate (Albuterol Sulfate) 2.5 Mg/3 Ml Vial.neb, 1 DOSE IH Q4HPRN PRN for SHORTNESS OF BREATH 10/30/19 Past Medical History Past Medical History: Diabetes-Type II Past Surgical History: None ROS Dictation CONSTITUTIONAL: Negative except for HPI HEAD/FACE: Negative except for HPI EENT: Negative except for HPI RESPIRATORY: Negative except for HPI GASTROINTESTINAL/ABDOMINAL: Negative except for HPI GENITOURINARY: Negative except for HPI MUSCULOSKELETAL: Negative except for HPI INTEGUMENTARY: Negative except for HPI NEUROLOGICAL/PSYCH: Negative except for HPI HEMATOLOGIC/LYMPHATIC: Negative except for HPI All Systems Negative, Except as noted above. 13 point review of systems assessed and all negative except for above. Physical Exam Physical Exam Dictation Vital Signs reviewed General Appearance: Alert, oriented x 3, no acute distress, well developed, nourished. Head and Face: non-traumatic. Eyes: PERRL, pink conjunctivas, eyelid no trauma, anterior chamber with arcus senilis. Ears: Pinnas intact and no signs of trauma or erythema ear canals clear and no discharge TM no erythema Nose: No discharge, no bleeding. Oropharynx: Mouth normal, tongue pink, pharynx clear,no erythema, tonsils no exudates, no abscesses noted, mucous membrane moist Neck: Supple, non-tender, no thyromegaly, no masses, no JVD, no bruits Breast:Deferred Chest:No tenderness, no crepitus, no paradoxical movement, no retractions Lungs:Clear, well-ventilated, symmetric, no rales, no wheezing, no rhonchi, no stridor, good breath sounds bilaterally Heart: Regular rate, regular rhythm, no murmur, no gallops Vascular: no peripheral edema, Abdomen: Soft, positive bowel sounds, nondistended, no guarding, nontender, no rebound, no masses no hepatomegaly, no splenomegaly, no Perry's sign, no hernias. Rectal: Deferred Genital: Deferred Neurological: Normal speech, motor function intact, sensory function intact Musculoskeletal: Neck nontender, full range of motion, back nontender, full range of motion, Extremities: nontender, full range of motion Skin: Color pink, dry, no turgor, no rash, no lacerations, no abrasions, no contusions. Lymphatic: Deferred Results Laboratory and Microbiology Lab and Micro Result Laboratory Tests Test 05/27/24 18:43 05/27/24 19:00 Urine Color COLORLESS (YELLOW) Urine Appearance CLEAR (CLEAR) Urine pH 5.0 (5.0-8.0) Urine Specific [place] 1.032 (1.001-1.031) Urine Protein NEGATIVE mg/dL (NEGATIVE) Urine Glucose (UA) >=1000 mg/dL (NEGATIVE) H Urine Ketones NEGATIVE mg/dL (NEGATIVE) Urine Occult Blood NEGATIVE (NEGATIVE) Urine Nitrate NEGATIVE (NEGATIVE) Urine Bilirubin NEGATIVE mg/dL (NEGATIVE) Urine Urobilinogen 0.2 mg/dL (0.2-1.0) Urine Leukocyte Esterase NEGATIVE Marco Antonio/uL Urine RBC 0-1 /HPF (0-1) Urine WBC 0-1 /HPF (0-1) Urine Bacteria None /HPF (None Seen) White Blood Count 7.1 K/uL (4.8-10.8) Red Blood Count 5.30 MIL/uL (4.50-6.20) Hemoglobin 16.2 g/dL (14.0-18.0) Hematocrit 48.1 % (42-54) Mean Corpuscular Volume 90.8 fL (79-99) Mean Corpuscular Hemoglobin 30.6 pg (27.0-33.0) Mean Corpuscular Hemoglobin Concent 33.7 g/dL (32.0-36.0) Red Cell Distribution Width 12.1 % (11.0-15.5) Platelet Count 188 K/uL (130-400) Mean Platelet Volume 10.6 fL (7.5-10.5) H Immature Granulocyte % (Auto) 0.4 % (0-1) Neutrophils (%) (Auto) 57.4 % (40.0-77.0) Lymphocytes (%) (Auto) 30.1 % (21.0-51.0) Monocytes (%) (Auto) 9.1 % (3.0-13.0) Eosinophils (%) (Auto) 2.3 % (0.0-8.0) Basophils (%) (Auto) 0.7 % (0.0-5.0) Neutrophils # (Auto) 4.1 K/uL (1.8-7.7) Lymphocytes # (Auto) 2.1 K/uL (1.0-4.8) Monocytes # (Auto) 0.6 K/uL (0.1-1.0) Eosinophils # (Auto) 0.16 K/uL (0.00-0.70) Basophils # (Auto) 0.05 K/uL (0.00-0.20) Absolute Immature Granulocyte (auto 0.03 K/uL (0-1) Nucleated Red Blood Cells 0.0 % (0.0-0.19) Sodium Level 140 mmol/L (136-145) Potassium Level 4.6 mmol/L (3.5-5.1) Chloride Level 100 mmol/L (101-111) L Carbon Dioxide Level 30 mmol/L (21-32) Blood Urea Nitrogen 18 mg/dL (7-18) Creatinine 1.4 mg/dL (0.5-1.3) H Glomerular Filtration Rate Calc 60 mL/min (>90) Random Glucose 386 mg/dL (70-105) H Total Calcium 9.6 mg/dL (8.5-10.1) Labs Reviewed?: Yes MDM MDM: Patient is a 54-year-old male presenting to the emergency department with dysuria, and urinary hesitancy that has been ongoing for the last month. He was seen by his primary care doctor earlier this week for the same complaints. A urinalysis was performed which showed sugar in his urine. Patient then had an extensive workup and was diagnosed with type 2 diabetes. He was started on metformin. He states that over the last couple of days he has been having an increase in urinary frequency but states he was unable to fully void. Denies any hematuria, fever, or rectal pain at this time. He does report some intermittent chills but no reported fevers at home. Patient denies having any history of an enlarged prostate or any other prostate issues. On physical examination patient is in no acute distress. His initial vital signs are stable. Patient is afebrile and nontoxic appearing. He specifically denies any abdominal pain. His abdominal examination is unremarkable. His CBC shows no leukocytosis. His chemistries show hyperglycemia with a sugar in the 300s. Patient was just started on metformin 500 mg daily less than a month ago. His urinalysis does not show any evidence of infection. Given his symptoms there is a clinical suspicion for an enlarged prostate versus prostatitis. I did have a lengthy discussion with the patient regarding his labs. At this time we will trial a course of oral antibiotics to see if his symptoms improve. He will be following up with his primary care doctor and urologist for outpatient ev aluation. Differential diagnosis: Prostatitis, urinary tract infection, There are no social concerns with this patient. Prescription drug management Prescriptions will include: Levaquin 500 mg daily for 28 days Medical management and examination interpretation discussions were had by me with other qualified healthcare professionals as indicated for the patient's care. ED Course Orders Procedure Category Date Status Time Cbc With Differential LAB 05/27/24 Complete 18:18 Basic Metabolic Panel LAB 05/27/24 Complete 18:18 Urinalysis Profile LAB 05/27/24 Complete 18:18 Vital Signs Date Time Temp Pulse Resp B/P (MAP) Pulse Ox O2 Delivery O2 Flow Rate FiO2 05/27/24 19:44 98.1 85 16 125/85 98 Room Air* 0 21 05/27/24 18:10 98.1 80 16 127/88 99 0 DX & DISP Disposition: Discharge Departure Impression: Primary Impression: Prostatitis Additional Impressions: Dysuria, Urinary retention, Glucosuria, Type 2 diabetes mellitus with hyperglycemia Condition: Stable Scripts Levofloxacin (Levofloxacin) 500 Mg Tablet 1 TAB PO DAILY for 28 Days, #28 TAB 0 Refills Prov: BRODY PERALES 05/27/24 Additional Instructions: Your blood work today is stable. Your white blood cell count is normal. Your blood sugar is elevated at 386. Please continue to take your metformin as prescribed. Follow up with your primary care doctor in 2-3 days for repeat evaluation. You may need medication adjustment regarding your diabetic medic ation. Your urinalysis does not show any evidence of infection however, this may be normal in cases of prostatitis. Your symptoms are concerning for a possible enlarged prostate versus prostatitis. You will need to follow up with the urologist for outpatient evaluation and further workup. I have given you a prescription for levofloxacin 500 mg daily for 28 days. This will be to treat prostatitis which is my clinical concern. Referrals: DERIAN BRAVO MD (PCP) KEKE LAKE MD Time of Disposition: 19:50 I have reviewed the case, and I agree with, Diagnosis and Plan I performed the substantive portion of the visit. I have reviewed and personally made and approve the management plan that is documented in the note by myself or the GABY. I acknowledge for responsibility for the patient's management plan. BRODY PERALES May 27, 2024 18:29
[2024-05-27 19:07] LABS: ADD UA MICROSCOPIC YES; APPEARANCE,URINE CLEAR (CLEAR); BILIRUBIN,URINE NEGATIVE (NEGATIVE); COLOR,URINE COLORLESS (YELLOW); GLUCOSE, URINE (UA) >=1000 mg/dL (NEGATIVE); KETONES,URINE NEGATIVE (NEGATIVE); LEUKOCYTE ESTERASE ,URINE NEGATIVE Leu/uL (NEGATIVE); NITRATE,URINE NEGATIVE (NEGATIVE); OCCULT BLOOD,URINE NEGATIVE (NEGATIVE); PROTEIN,URINE NEGATIVE (NEGATIVE); UROBILINOGEN,URINE 0.2 mg/dL (0.2-1.0)
[2024-05-27 19:08] LABS: MUCUS,URINE RARE LPF (None Seen); RBC,URINE 0-1 /HPF (0-1); WBC,URINE 0-1 /HPF (0-1)
[2024-05-27 19:18] LABS: BASOPHILS # (AUTO) 0.05 K/uL (0.00-0.20); BASOPHILS % (AUTO) 0.7 % (0.0-5.0); EOSINOPHILS # (AUTO) 0.16 K/uL (0.00-0.70); EOSINOPHILS % (AUTO) 2.3 % (0.0-8.0); HEMATOCRIT 48.1 % (42-54); IMMATURE GRANULOCYTE ABSOLUTE 0.03 K/uL (0-1); LYMPHOCYTES # (AUTO) 2.1 K/uL (1.0-4.8); LYMPHOCYTES % (AUTO) 30.1 % (21.0-51.0); MEAN CORPUSCULAR HEMOGLOBIN 30.6 pg (27.0-33.0); MEAN CORPUSCULAR HGB CONC 33.7 g/dL (32.0-36.0); MEAN CORPUSCULAR VOLUME 90.8 fL (79-99); MONOCYTES # (AUTO) 0.6 K/uL (0.1-1.0); MONOCYTES % (AUTO) 9.1 % (3.0-13.0); NEUTROPHILS # (AUTO) 4.1 K/uL (1.8-7.7); NEUTROPHILS % (AUTO) 57.4 % (40.0-77.0); PLATELET COUNT (AUTO) 188 K/uL (130-400); RED CELL DISTRIBUTION WIDTH 12.1 % (11.0-15.5); WHITE BLOOD COUNT (AUTO) 7.1 K/uL (4.8-10.8)
[2024-05-27 19:26] LABS: CREATININE 1.4 mg/dL (0.5-1.3); POTASSIUM 4.6 mmol/L (3.5-5.1)
[2024-05-27 19:44] VITALS: BP 125/85; PULSE 85; RESP 16; TEMP 98.1; O2SAT 98
[2024-05-27] MEDS ORDERED: LEVO-70 PO (19:51)
== END 2024-05-27 19:57 | disposition home or self-care (01) ==
LOC: EDH 18:07
DX: N41.9 Inflammatory disease of prostate, unspecified (principal); R30.0 Dysuria; R33.9 Retention of urine, unspecified; R81 Glycosuria; E11.65 Type 2 diabetes mellitus with hyperglycemia; Z79.01 Long term (current) use of anticoagulants; Z79.52 Long term (current) use of systemic steroids; Z79.899 Other long term (current) drug therapy
CPT/HCPCS: 36415; 80048; 81001; 85025; 99283